=== PATIENT | male | born 1995 | race Caucasian/White ===

== ENCOUNTER 2018-04-14 11:06 | Emergency (ER) | payer BC ==
[~2018-04-14] VITALS: Ht 188 cm; Wt 93.6 kg
[2018-04-14 11:10] VITALS: BP 113/62; PULSE 92; TEMP 98.2
== END 2018-04-14 12:33 | disposition home or self-care (01) ==
LOC: COL.ER 11:06
DX: S61.210A Laceration without foreign body of right index finger without damage to nail, initial encounter (principal); W22.8XXA Striking against or struck by other objects, initial encounter